=== PATIENT | male | born 1935 | race Caucasian/White ===

== ENCOUNTER 2022-01-25 12:56 | Outpatient (CLI) | payer MEDICARE, BC, SELFPAY ==
[2022-01-25 21:47] LABS: Iron* 95 ug/dL (49-181)
[2022-01-25 22:32] LABS: Vitamin B12* 469 pg/mL (243-894)
== END 2022-01-25 12:57 | disposition home or self-care (01) ==
PROVIDERS: PCP Family Medicine; Visit Provider Family Medicine
DX: D64.9 Anemia, unspecified (principal); F02.80 Dementia in other diseases classified elsewhere, unspecified severity, without behavioral disturbance, psychotic disturbance, mood disturbance, and anxiety
CPT/HCPCS: 82607; 83540

== ENCOUNTER 2022-05-30 11:52 | Outpatient (CLI) | payer MEDICARE, BC, SELFPAY ==
--- OUTSIDE RECORDS SUMMARY | 2022-05-30 12:05 | XMS_ITS ---
:1935 Author Care Team Providers Name Role Phone VANESSA PATINO MD Primary Care Provider [phone] Allergies Code Code System Name Reaction Severity Status Onset 2670 RxNorm Codeine ? ? Deactivated ? NKDA ? Medications Name Status Start Date Stop Date ? ? donepezil 10 mg tablet Active ? Not avail able TAKE 1 TABLET BY MOUTH AT BEDTIME donepezil 5 mg tablet Active ? Not availa ble TAKE 1 TABLET BY MOUTH EVERYDAY AT BEDTIME finasteride 5 mg tablet Active ? Not avai lable Take 1 tablet every day by oral route. fluticasone propionate 50 mcg/actuation nasal Active ? Not available spray,suspension Mucinex 600 mg tablet, extended release Active ? Not available TAKE 1 TABLET BY MOUTH EVERY DAY tamsulosin 0.4 mg capsule Active ? Not av ailable Take 1 capsule every day by oral route. timolol maleate 0.25 % eye drops Active ? Not available Problems None recorded. Procedures Notes: Bilateral inguinal hernia repai r over 10 years ago Results Lab Results Date Name Specimen Result Interpretation Description Value Range Status Address ? 09/16/2021 Urinalysis, Dipstick ? Color-Status Yellow ? Clarity-Status Clear ? pH-Status 5.5 ? Blood-Status Moderate ? ? 09/16/2021 Urinalysis, Dipstick ? No observation ? ? ? recorded. Past Encounters 09/16/2021 Lower Urinary Tract Symptoms Due to Adonay gn Prostatic Hypertrophy Lincoln Pathak MD: [id number] [facility] [place] [address], Ph. Social History Tobacco Smoking Status Former Smoker Vaccine List Notes: Doesn't know what year Plan of Care Reminders Provider Appointments None recorded. ? ? Lab None recorded. ? ? Referral None recorded. ? ? Procedures None recorded. ? ? Surgeries None recorded. ? ? Imaging None recorded. ? ? Vitals Height Weight BMI 5 ft 5 in 154 lbs 25.6 kg/m2
[2022-05-30 22:29] LABS: Albumin* 3.7 g/dL (3.3-5.0); Chloride* 99 mmol/L (96-114)
[2022-05-30 22:30] LABS: Potassium* 4.9 mmol/L (3.6-5.1); Sodium* 135 mmol/L (135-149)
[2022-05-30 22:32] LABS: Aspartate Amino Transferase* 27 U/L (12-35); Bilirubin Total* 0.6 mg/dL (0.1-1.5); Carbon Dioxide* 29 mmol/L (20-32); Creatinine* 0.7 mg/dL (0.5-1.5); Estimated Glomerular Filt Rate 90 ml/min
[2022-05-30 22:33] LABS: Alanine Aminotransferase* 21 U/L (4-50); Alkaline Phosphatase* 92 U/L (40-150); Blood Urea Nitrogen* 15 mg/dL (7-30); Calcium* 8.4 mg/dL (8.4-10.6); Glucose* 83 mg/dL (60-115); Magnesium* 2.2 mg/dL (1.5-2.6); Total Protein* 6.8 g/dL (6.0-8.3)
== END 2022-05-30 11:53 | disposition home or self-care (01) ==
PROVIDERS: PCP Family Medicine; Visit Provider Family Medicine
DX: F02.80 Dementia in other diseases classified elsewhere, unspecified severity, without behavioral disturbance, psychotic disturbance, mood disturbance, and anxiety (principal); G30.9 Alzheimer's disease, unspecified; J44.9 Chronic obstructive pulmonary disease, unspecified; I10 Essential (primary) hypertension
CPT/HCPCS: 80053; 83735

== ENCOUNTER 2022-10-06 11:56 | Outpatient (CLI) | payer MEDICARE, BC, SELFPAY | END 2022-10-06 11:57 | disposition home or self-care (01) | PROVIDERS: PCP Family Medicine; Visit Provider Family Medicine | DX: Z00.00 Encounter for general adult medical examination without abnormal findings (principal); E55.9 Vitamin D deficiency, unspecified; F02.80 Dementia in other diseases classified elsewhere, unspecified severity, without behavioral disturbance, psychotic disturbance, mood disturbance, and anxiety; G30.9 Alzheimer's disease, unspecified; N18.9 Chronic kidney disease, unspecified; R06.02 Shortness of breath; J44.9 Chronic obstructive pulmonary disease, unspecified; G35 Multiple sclerosis | CPT/HCPCS: 80053; 82306; 82607; 83880 ==

== ENCOUNTER 2023-01-23 10:25 | Inpatient (IN) | payer MEDICARE, SELFPAY ==
[2023-01-23 08:11] VITALS: BP 128/82; PULSE 63; RESP 20; TEMP 36.2; O2SAT 96
--- NOTE | 2023-01-23 10:16 | PC.NURSE ---
Patient arrived to the unit in w/c with son-in-law. Appears alert was assisted with stand by assist and walker to the recliner chair. Vital stable. Hospice Nurse Torin is present for his intake. Smeller Lamar is here to sit with patient until 12 and the Hospice TAWANDA will arrive this afternoon for cares. Order him some lunch does not appear to have any pain. Will continue to monitor for safety.
--- NOTE | 2023-01-23 10:34 | P.IMHP_ITS ---
Hospitalist- H&P: HPI History of Present Illness Date Seen: 01/23/23 Chief complaint: Direct Admit- Hospice Respite Narrative: Randy Allen is a 87 year old male hospice patient who is admitted to the hospital for a respite stay. His primary the hospice diagnosis is Alzheimer's disease with adult failure to thrive, weakness, and intermittent agitation. Comorbidities include non-oxygen dependent COPD, BPH with LUTS, chronic allergic rhinitis/sinusitis, MS, glaucoma, and hematuria. Review of Systems Status of ROS: Reports: unobtainable due to medical condition Narrative: Patient specifically denies pain upon questioning. [facility] Medical History (Updated 01/23/23 @ 10:59 by Elizabeth Romero MD) Asymptomatic microscopic hematuria ?R31.21 - Asymptomatic microscopic hematuria (ICD-10) Pulmonary nodules ?R91.8 - Other nonspecific abnormal finding of lung field (ICD-10) Sleep apnea ?G47.30 - Sleep apnea, unspecified (ICD-10) Multiple sclerosis ?G35 - Multiple sclerosis (ICD-10) Malignant neoplasm of skin ?C44.90 - Unspecified malignant neoplasm of skin, unspecified (ICD-10) Health care directive on file (06/26/20) ?Z78.9 - Other specified health status (ICD-10) Glaucoma ?H40.9 - Unspecified glaucoma (ICD-10) Fracture of head of humerus ?S42.293A - Other displaced fracture of upper end of unspecified humerus, initial encounter for closed fracture (ICD-10) Chronic sinusitis ?J32.9 - Chronic sinusitis, unspecified (ICD-10) Adhesive capsulitis of right shoulder ?M75.01 - Adhesive capsulitis of right shoulder (ICD-10) Surgical History (Updated 01/19/22 @ 16:30 by Shane Purvis) History of colonoscopy ?Z98.890 - Other specified postprocedural states (ICD-10) Social History (Updated 12/28/21 @ 08:45 by Adriane Mcpherson) Narrative: Does not drink alcohol Does not use illicit drugs Former smoker Smoking Status: Never smoker Little interest or pleasure in doing things: nearly every day Feeling down, depressed, or hopeless: nearly every day Meds Home Medications and Allergies Home Medications Medication Instructions Recorded Confirmed Type fluticasone propionate 50 1 spray intranasal BID PRN 01/25/22 01/23/23 History mcg/actuation nasal spray,suspension multivit with minerals-ferrous 1 ea PO DAILY 01/25/22 01/23/23 History sulfate 4.5 mg iron oral powder packet (One Daily Multivitamins with Minerals) tamsulosin 0.4 mg capsule 0.4 mg PO DAILY 01/25/22 01/23/23 History fexofenadine 60 mg tablet (Franny 60 mg PO DAILY 03/15/22 01/23/23 History Allergy) guaifenesin 600 mg tablet, 600 mg PO BID 03/15/22 01/23/23 History extended release 12 hr (Mucinex) lactobacillus combination no.9 4 4,000 mmu cells PO DAILY 05/30/22 01/23/23 History billion cell capsule (Adult 50 Plus Probiotic) melatonin 5 mg capsule 10 mg PO HS 10/06/22 01/23/23 History acetaminophen 500 mg tablet 1,000 mg PO BID 01/23/23 01/23/23 History (Tylenol Extra Strength) bisacodyl 10 mg rectal suppository 10 mg NH DAILY PRN 01/23/23 01/23/23 History (Dulcolax (bisacodyl)) haloperidol lactate 2 mg/mL oral 1 mg PO Q6H PRN 01/23/23 01/23/23 History concentrate hyoscyamine sulfate 0.125 mg 0.125 - 0.25 mg sublingual Q4H PRN 01/23/23 01/23/23 History sublingual tablet (Levsin/SL) ipratropium 0.5 mg-albuterol 3 mg 3 ml inhalation Q4H PRN 01/23/23 01/23/23 History (2.5 mg base)/3 mL nebulization soln lorazepam 0.5 mg tablet (Ativan) 0.5 - 1 mg PO Q3H PRN 01/23/23 01/23/23 History morphine concentrate 100 mg/5 mL 5 - 20 mg sublingual Q1H PRN 01/23/23 01/23/23 History (20 mg/mL) oral solution naproxen sodium 220 mg tablet 220 mg PO BID 01/23/23 01/23/23 History (Aleve) prochlorperazine maleate 10 mg 10 mg PO Q6H PRN 01/23/23 01/23/23 History tablet (Compazine) quetiapine 25 mg tablet 25 mg PO BID 01/23/23 01/23/23 History Allergies Allergy/AdvReac Type Severity Reaction Status Date / Time No Known Allergies Allergy Verified 10/06/22 11:26 Exam Narrative: Exam Narrative: GEN: Alert and sitting comfortably in chair, nontoxic HEENT: Normal external ears, no scleral icterus CV: RRR, No concerning murmurs, heart sounds distant R: Air movement adequate, fine rales bilateral bases, no wheezing Ab: soft, nontender Ext: wearing Jone socks bilaterally, no concerning edema Skin: Scattered bruising over extremities Const: Vital Signs, click to edit/add: Vital Signs - 24 hr 01/23/23 08:11 Temperature 97.2 F L Pulse Rate [Right Radial] 63 Respiratory Rate 20 Blood Pressure [Ri ght Arm] 128/82 Pulse Oximetry 96 Oxygen Delivery Me thod Room Air Assessment and Plan Assessment and plan (1) Hospice care patient: Status: Acute (2) Alzheimer's dementia: Status: Acute (3) Benign prostatic hyperplasia: Status: Acute Plan - admit to respite care - reviewed plan of care with Torin office machine mechanic
[2023-01-23] MEDS: NAPROXEN 250 MG TABLET PO (17:30)
--- NOTE | 2023-01-23 17:54 | PC.NURSE ---
End of Shift Note: Patient has been pleasant and cooperative since his arrival to the unit. When he first arrived there was a wood fuel pelletizer that sat with him for a bit and then he now has the hospice nursing consultant sitting with him. Tolerated his meals. Offers no complaints of pain just took schedule naproxen without difficulty. Will continue to monitor until next shift arrives.
[2023-01-23] MEDS: timoloL maleate 0.25% EYE DROPS 1 DROP EYE-BOTH (21:14)
[2023-01-23] MEDS: QUETIAPINE 25 MG TABLET PO (23:02)
[2023-01-23] MEDS: MELATONIN 3 MG TABLET 9 MG PO (23:02)
[2023-01-23] MEDS: ACETAMINOPHEN 500 MG TABLET 1000 MG PO (23:02)
[2023-01-23] MEDS: guaiFENesin 600 MG TAB.ER.12H PO (23:03)
--- NOTE | 2023-01-24 06:06 | PC.NURSE ---
End of Shift: Pt appropriate and cooperative throughout shift. Hospice staff left around 1999. No BM throughout shift, pt continent with bladder. Pt slept through the night with minimal disturbances. Denies pain.
[2023-01-24] MEDS: ACETAMINOPHEN 500 MG TABLET 1000 MG PO ×2 (08:50→22:26)
[2023-01-24] MEDS: FEXOFENADINE 180 MG TABLET 90 MG PO (08:50)
[2023-01-24] MEDS: FINASTERIDE 5 MG TABLET PO (08:51)
[2023-01-24] MEDS: TAMSULOSIN HCL 0.4 MG CAPSULE PO (08:51)
[2023-01-24] MEDS: MULTIVITAMIN/MINERALS 1 TABLET 1 TAB PO (08:51)
[2023-01-24] MEDS: NAPROXEN 250 MG TABLET PO ×2 (08:51→22:26)
[2023-01-24] MEDS: QUETIAPINE 25 MG TABLET PO ×2 (08:52→22:26)
[2023-01-24] MEDS: guaiFENesin 600 MG TAB.ER.12H PO ×2 (08:54→22:25)
[2023-01-24] MEDS: timoloL maleate 0.25% EYE DROPS 1 DROP EYE-BOTH ×2 (12:02→22:21)
--- NOTE | 2023-01-24 18:41 | PC.NURSE ---
shift note: pt up 1/walker to bathroom and ambulated with hospice staff x3 in [place] 200-350ft each time. pt skin intact. pt has periods of incont in brief. pt tolerated regular diet
[2023-01-24] MEDS: MELATONIN 3 MG TABLET 9 MG PO (22:25)
--- NOTE | 2023-01-25 06:03 | PC.NURSE ---
[id number]: Patient cooperative with cares. Up frequently throughout shift. A1/walker/GB. Slept on and off. Eating and voiding.
[2023-01-25] MEDS: MULTIVITAMIN/MINERALS 1 TABLET 1 TAB PO (08:27)
[2023-01-25] MEDS: QUETIAPINE 25 MG TABLET PO ×2 (08:27→20:38)
[2023-01-25] MEDS: guaiFENesin 600 MG TAB.ER.12H PO ×2 (08:27→20:38)
[2023-01-25] MEDS: FEXOFENADINE 180 MG TABLET 90 MG PO (08:27)
[2023-01-25] MEDS: NAPROXEN 250 MG TABLET PO ×2 (08:27→18:06)
[2023-01-25] MEDS: TAMSULOSIN HCL 0.4 MG CAPSULE PO (08:27)
[2023-01-25] MEDS: FINASTERIDE 5 MG TABLET PO (08:28)
[2023-01-25] MEDS: ACETAMINOPHEN 500 MG TABLET 1000 MG PO ×2 (08:28→20:37)
[2023-01-25] MEDS: timoloL maleate 0.25% EYE DROPS 1 DROP EYE-BOTH ×2 (08:29→20:38)
--- NOTE | 2023-01-25 18:41 | PC.NURSE ---
PATIENT HAS BEEN PLEASANT AND COOPERATIVE. EASILY REDIRECTED. DENIES PAIN. UP WITH A1, WALKER AND GAIT BELT TO BATHROOM AND RECLINER AND TOLERATING ACTIVITY WELL. TOLERATING REGULAR DIET WITH NO C/O N/V.
[2023-01-25] MEDS: MELATONIN 3 MG TABLET 9 MG PO (20:36)
--- NOTE | 2023-01-26 06:31 | PC.NURSE ---
19-: pleasant and cooperative. Calls appropriately. SBA with gb and walker. Occasionally confused, at 0200 pt stated his and some family members were coming to pick him up shortly and he needed to get ready, easily redirected.
[2023-01-26] MEDS: FEXOFENADINE 180 MG TABLET 90 MG PO (09:04)
[2023-01-26] MEDS: NAPROXEN 250 MG TABLET PO ×2 (09:04→18:32)
[2023-01-26] MEDS: FINASTERIDE 5 MG TABLET PO (09:05)
[2023-01-26] MEDS: guaiFENesin 600 MG TAB.ER.12H PO ×2 (09:05→21:19)
[2023-01-26] MEDS: ACETAMINOPHEN 500 MG TABLET 1000 MG PO ×2 (09:05→21:19)
[2023-01-26] MEDS: TAMSULOSIN HCL 0.4 MG CAPSULE PO (09:05)
[2023-01-26] MEDS: QUETIAPINE 25 MG TABLET PO ×2 (09:06→21:19)
[2023-01-26] MEDS: MULTIVITAMIN/MINERALS 1 TABLET 1 TAB PO (09:07)
[2023-01-26] MEDS: timoloL maleate 0.25% EYE DROPS 1 DROP EYE-BOTH ×2 (09:07→21:20)
[2023-01-26] MEDS: IPRAT-ALBUT 0.5-2.5 MG/3 ML NEB 1 NEB IH (10:00)
--- NOTE | 2023-01-26 19:35 | PC.NURSE ---
End of Shift: Patient pleasant and cooperative. Up in chair and naps in bed. Used the toilet multiple times today, continent. Patient is a great eater. Patient SBA/ walker. Patient denies pain.
[2023-01-26] MEDS: MELATONIN 3 MG TABLET 9 MG PO (21:19)
[2023-01-27] MEDS: NAPROXEN 250 MG TABLET PO ×2 (08:45→17:54)
[2023-01-27] MEDS: MULTIVITAMIN/MINERALS 1 TABLET 1 TAB PO (08:45)
[2023-01-27] MEDS: TAMSULOSIN HCL 0.4 MG CAPSULE PO (08:45)
[2023-01-27] MEDS: ACETAMINOPHEN 500 MG TABLET 1000 MG PO ×2 (08:45→20:32)
[2023-01-27] MEDS: QUETIAPINE 25 MG TABLET PO ×2 (08:46→20:33)
[2023-01-27] MEDS: FEXOFENADINE 180 MG TABLET 90 MG PO (08:46)
[2023-01-27] MEDS: FINASTERIDE 5 MG TABLET PO (08:46)
[2023-01-27] MEDS: guaiFENesin 600 MG TAB.ER.12H PO ×2 (08:47→20:32)
[2023-01-27] MEDS: timoloL maleate 0.25% EYE DROPS 1 DROP EYE-BOTH ×2 (08:48→20:33)
--- NOTE | 2023-01-27 17:28 | PC.NURSE ---
Pt pleasant and cooperative during shift. Pt assist of one with walker. sanitarian visited with Pt today. Pt had hospice aides with him from 1430- end of shift.?
[2023-01-27] MEDS: MELATONIN 3 MG TABLET 9 MG PO (20:32)
--- NOTE | 2023-01-27 22:43 | PC.NURSE ---
Shift [id number]- Patient up to chair watching t.v. with photographic aide at attendance until 1999. He is assisted to bed, offered PM cares, but declines. He denies pain. Denies any other needs. Appears comfortable.
--- NOTE | 2023-01-28 05:50 | PC.NURSE ---
END OF SHIFT NOTE: PT ON HOSPICE; PROVIDING COMFORT CARES. HX OF ALZHEIMER?S. PT CONFUSED, BUT EASILY REDIRECTED. BED ALARM ON AND CALL LIGHT WITHIN PT?S REACH. FAMILY FRIEND TO BREAD PAN GREASER PT 01/28 @0900. USES CALL LIGHT APPROPRIATELY. AMBULATES WITH WALKER, GB, A1.?
--- NOTE | 2023-01-28 09:17 | PC.NURSE ---
Pt was picked up by caregivers at 0905. Wheeled out in stable condition, all belongings checked.
== END 2023-01-28 09:05 | disposition hospice, home (50) | DRG 57 ==
PROVIDERS: Admitting Provider Family Medicine; PCP Family Medicine; Visit Provider Family Medicine
DX: G30.9 Alzheimer's disease, unspecified (principal); F02.811 Dementia in other diseases classified elsewhere, unspecified severity, with agitation; J44.9 Chronic obstructive pulmonary disease, unspecified; N40.1 Benign prostatic hyperplasia with lower urinary tract symptoms; G47.30 Sleep apnea, unspecified; G35 Multiple sclerosis; H40.9 Unspecified glaucoma
CPT/HCPCS: 94640; A9153; A9270

== ENCOUNTER 2023-10-12 12:14 | Outpatient (CLI) | payer MEDICARE, BC, SELFPAY | END 2023-10-12 12:15 | disposition home or self-care (01) | LOC: FRMREF 12:15 | PROVIDERS: PCP Family Medicine; Visit Provider Family Medicine | DX: Z00.00 Encounter for general adult medical examination without abnormal findings (principal); G35 Multiple sclerosis | CPT/HCPCS: 80053 ==